=== PATIENT | male | born 2000 | race Caucasian/White ===

== ENCOUNTER 2019-10-08 03:10 | Emergency (ER) | payer BC ==
--- NOTE | 2019-10-08 05:07 | ED ---
Head Injury - HPI Summary HPI Summary: This patient is a 19 year old M presenting to ED with a chief complaint of head injury since 0000 this morning. Patient was playing squash and slipped and hit his head on the court. Patient did not lose consciousness. He stopped playing the game and then thought he should come see a physician. In the ED room, patient states he feels okay. He denies nausea, neck pain. He reports having a wound on the back of his neck. The patient rates the pain 2/10 in severity. Symptoms aggravated by nothing. Symptoms alleviated by nothing. - History Of Current Complaint Chief Complaint: EDHeadInjury Stated Complaint: HEAD LAC PER PT Time Seen by Provider: 10/08/19 05:01 Hx Obtained From: Patient Mechanism Of Injury: Fall From A Standing Position Onset/Duration: Started Hours Ago - At 0000 this morning, Traumatic Onset of Pain: Immediate, Post Accident Severity Currently: Mild Severity Initially: Mild Pain Intensity: 2 Pain Scale Used: 0-10 Numeric Location of Head Injury: Occipital Aggravating Factor(s): Other: - Nothing Alleviating Factor(s): Other: - Nothing Associated Signs And Symptoms: Negative - LOC, nausea, neck pain, Other: - Wound on back of neck - Allergies/Home Medications Allergies/Adverse Reactions: Allergies Allergy/AdvReac Type Severity Reaction Status Date / Time No Known Allergies Allergy Verified 10/08/19 05:08 PMH/Surg Hx/FS Hx/Imm Hx Endocrine/Hematology History: Denies: Hx Diabetes Cardiovascular History: Denies: Hx Hypercholesterolemia, Hx Hypertension Respiratory History: Denies: Hx Asthma - Surgical History Surgical History: None Surgery Procedure, Year, and Place: Denies Infectious Disease History: No Infectious Disease History: Denies: Traveled Outside the [place] in Last 30 Days - Family History Known Family History: Negative: Cardiac Disease, Hypertension, Diabetes - Social History Alcohol Use: Weekly Hx Substance Use: Yes Substance Use Type: Reports: Marijuana Hx Tobacco Use: Yes Smoking Status (MU): Current Some Day Smoker Review of Systems Negative: Nausea Musculoskeletal: Negative - Neck pain Skin: Other - Wound to back of neck Neurological/Mental Status: Negative - LOC All Other Systems Reviewed And Are Negative: Yes Physical Exam - Summary Physical Exam Summary: Appearance: Well-appearing, Well-nourished, lying in bed comfortable Skin: Warm, dry, no obvious rash Head: 2 cm occipital scalp laceration that is not very deep and does not appear to require closure Eyes: sclera anicteric, no conjunctival pallor ENT: mucous membranes moist Neck: deferred Respiratory: No signs of respiratory distress Cardiovascular: Appears well perfused, pulses are nml Abdomen: deferred Musculoskeletal: Moving all 4 extremities without obvious discomfort Neurological: Awake and alert, mentation is normal, speech is fluent and appropriate Psychiatric: affect is normal, does not appear anxious or depressed Triage Information Reviewed: Yes Vital Signs On Initial Exam: Initial Vitals Temp Pulse Resp BP Pulse Ox 97.7 F 97 15 157/100 98 10/08/19 03:12 10/08/19 03:12 10/08/19 03:12 10/08/19 03:12 10/08/19 03:12 Vital Signs Reviewed: Yes Procedures - Sedation Patient Received Moderate/Deep Sedation with Procedure: No Diagnostics - Vital Signs Vital Signs Temp Pulse Resp BP Pulse Ox 10/08/19 03:12 97.7 F 97 15 157/100 98 - Laboratory Lab Statement: Any lab studies that have been ordered have been reviewed, and results considered in the medical decision making process. Head Injury Course/Dx Course Of Treatment: This patient is a 19 year old M presenting to ED with a chief complaint of head injury since 0000 this morning. Patient has a 2 cm occipital scalp laceration that is not very deep and does not appear to require closure. Thus, patient will be discharged home with dx of scalp laceration. Educated patient on care for wound. Patient understands and agrees with this plan. - Diagnoses Provider Diagnoses: Head injury Discharge ED - Sign-Out/Discharge Documenting (check all that apply): Patient Departure - Discharge - Discharge Plan Condition: Good Disposition: HOME Patient Education Materials: Head Injury (ED) Referrals: [facility] [Outside] - If Needed Additional Instructions: The wound on the back of your head is fairly superficial and I don't think it needs to be closed. It will ooze a bit of blood through the night and probably into the morning, but will stop by the afternoon and from there should heal just fine. I would wait until it has dried up before showering. - Billing Disposition and Condition Condition: GOOD Disposition: Home - Attestation Statements Document Initiated by Scribe: Yes Documenting Scribe: Kaz Mckenzie Provider For Whom Scribe is Documenting (Include Credential): Alden Bhardwaj MD Scribe Attestation: I, Kaz Mckenzie, scribed for Alden Bhardwaj MD on 10/12/19 at 1817. Scribe Documentation Reviewed: Yes Provider Attestation: The documentation as recorded by the scribe, Kaz Mckenzie accurately reflects the service I personally performed and the decisions made by me, Alden Bhardwaj MD Status of Scribe Document: Viewed
[2019-10-08 05:16] VITALS: BP 122/74
== END 2019-10-08 05:14 | disposition home or self-care (01) ==
LOC: ED 03:10
DX: S01.01XA Laceration without foreign body of scalp, initial encounter (principal); W01.198A Fall on same level from slipping, tripping and stumbling with subsequent striking against other object, initial encounter; Y93.73 Activity, racquet and hand sports; Y92.311 Squash court as the place of occurrence of the external cause; F17.200 Nicotine dependence, unspecified, uncomplicated
CPT/HCPCS: 99282